=== PATIENT | male | born 1990 | race African-American/Black ===

== ENCOUNTER 2023-09-25 17:13 | Emergency (ER) | payer OTHER, SELFPAY ==
[2023-09-25 17:15] VITALS: BMI 29.0
--- NOTE | 2023-09-25 18:21 | ED.GENADULT ---
HPI - General Adult General Chief complaint: Wound/Laceration Stated complaint: from ken smith, lac on l forearm, intentional Time Seen by Provider: 09/25/23 17:32 Source: patient Mode of arrival: ambulatory Limitations: no limitations History of Present Illness HPI narrative: 32-year-old male presently being treated for depression at [facility] presents to ED for self-harm ideation. Patient states he was frustrated with staff so instead of hurting staff he cut himself in the left forearm. Patient had done this before in the past. Patient presently denies any suicidal homicidal ideation. Patient denies any auditory/visual hallucinations. Patient denies any other complaints. Patient up-to-date with Tdap Related Data Previous Rx's ?Medication ?Instructions ?Recorded cephalexin 500 mg capsule 500 mg PO Q12H 7 days #14 caps 09/25/23 Allergies Allergy/AdvReac Type Severity Reaction Status Date / Time No Known Allergies Allergy Verified 09/25/23 18:15 [facility] Social History Social History Use of substances other than those prescribed or required for medical reasons: Yes Substance Use Type: Methamphetamine Advance Directives: No Advance Directives Information Provided: No Physical Exam ED Vital Signs: Vital Signs - 24 hr 09/25/23 21:54 Temperature 98.0 F Pulse Rate 58 Respiratory Rate 12 Blood Pressure 141/90 H Pulse Oximetry 98 Oxygen Delivery Method Room Air BMI result Body Mass Index 29.0 Const General: cooperative, healthy appearing, comfortable, no acute distress, well developed, alert, awake and Physically active Orientation/consciousness: oriented to person, oriented to place, oriented to time and patient oriented x3 HENMT Head: Yes normal to inspection, Yes No palpable skull fracture present, Yes normocephalic, Yes atraumatic and No abrasion Eyes General: appearance normal, both eyes and all related structures Neck Neck: Yes normal visual inspection, Yes full ROM, Yes no lymphadenopathy, Yes no meningeal signs, Yes trachea midline, Yes supple, No anterior neck swelling and No tender Chest Chest palpation & inspection: normal inspection of the chest and normal palpation of entire chest wall Resp Effort & Inspection: normal respiratory effort Cardio Jugular venous distension: no JVD Heart sounds: S1 normal heart sound present and S2 normal heart sound present GI Inspection: Yes normal to inspection and No abdominal wall ecchymosis Palpation (GI): Soft to palpation, not firm, nontender, no guarding and not rigid General: Yes no CVA tenderness Back/Spine/Pelvis Back: no CVA tenderness and No back tenderness Skin General skin exam: no rashes or lesions noted, elasticity normal and turgor normal Neuro General: oriented to person, oriented to place, oriented to time, patient oriented x3, gait normal, tone normal, moves all extremities, Normal light touch and pain sensation, no meningeal signs, no focal motor deficits, CN's II-XI intact bilaterally and normal sensation to monofilament Extrem General: Yes normal to inspection, Yes full ROM and Yes capillary refill normal Elbow/forearm/wrist images: 1. large Positive for laceration superficial. Bleeding controlled. Rest of extremity normal. Motor/neuro/vascular exam whole extremity intact Psych Appearance: grossly normal, well kempt and not disheveled Medications Administered Discontinued Medications Generic Name Dose Route Start Last Admin Trade Name Freq PRN Reason Stop Dose Admin Lidocaine HCl 5 ml 09/25/23 18:15 09/25/23 18:52 Lidocaine Hcl 1 % Mpf 5 Ml Vial INFILTRATI 09/25/23 18:16 5 ml ONCE ONE Administration Lidocaine HCl 5 ml 09/25/23 18:20 09/25/23 18:52 Lidocaine Hcl 1 % Mpf 5 Ml Vial INFILTRATI 09/25/23 18:21 5 ml ONCE ONE Administration Medical Decision Making Medical Decision Making [facility] Narrative: 32-year-old male presently being treated at [facility] for depression psych patient presents to ED for self-inflicted left arm wide laceration. Very large laceration. Negative for signs of motor/neuro/vascular compromise. Cleaned with sterile saline and Betadine iodine. Lidocaine 15ml 1% placed in very large laceration ( after 10ml patient still had pain so more lidocaine was given). Size 4 nylon sutures used. Two vertical mattress was placed. Sixteen simple sutures placed. Patient up-to-date with tetanus. Patient will be going back to [facility] for psych and patient. Differential Diagnosis Differential Diagnoses: The differential diagnosis associated with the presentation includes (Depression, self-inflicted laceration, suicidal,) Admission/Observation Consideration of admission/observation: Escalation of care including admission/observation considered Independent Historian Clinical information obtained from an independent historian. History obtained from or confirmed by: Other (Patient) External Record Review External record reviewed: Other (Previous visits) Discharge Plan Discharge Clinical Impression: Laceration Patient Disposition: Xfer Psychiatric Hosp Transfer Details: Inga Smith Instructions: Laceration (ED) Additional Instructions: Recommend sutures to be removed in 10-11 days. Return to the ED immediately for any redness, pus discharge, foul odor, fever, chills, severe pain, swelling, bluish black discoloration, numbness/tingling, inability to move extremity, or any other concerning symptoms. You will be discharged with antibiotics to prevent infection. Prescriptions: New cephalexin 500 mg capsule 500 mg PO Q12H 7 Days Qty: 14 0RF Interventions: Acute Care Transfer Worksheet (ED) Last Done: 09/25/23 21:54 Discharge Date/Time: 09/25/23 21:55 Print Language: Greenlandic
[2023-09-25] MEDS: Lidocaine HCl 1 % MPF 5 ML VIAL INFILTRATI ×2 (18:52)
--- NOTE | 2023-09-25 21:39 | PC.NURSE ---
Nurse to Nurse given to [facility] 5 Rn.
[2023-09-25 21:54] VITALS: BP 141/90; PULSE 58; RESP 12; TEMP 36.7; O2SAT 98
== END 2023-09-25 21:55 ==
PROVIDERS: Emergency Provider Internal Medicine
DX: S51.812A Laceration without foreign body of left forearm, initial encounter (principal); X83.8XXA Intentional self-harm by other specified means, initial encounter; Y93.9 Activity, unspecified; Y92.10 Unspecified residential institution as the place of occurrence of the external cause; Y99.9 Unspecified external cause status
CPT/HCPCS: 99285